=== PATIENT | female | born 2005 | race African-American/Black ===

== ENCOUNTER 2025-02-16 16:59 | Emergency (ER) | payer SELFPAY ==
[2025-02-16 18:02] LABS: Bacteria/HPF 4+ HPF (None Seen); CAUTI Indications for Culture Dysuria,urgency,freq; Glucose, Urine (Dipstick) Normal (Negative); Leukocyte 250 Leu/uL (Negative); Protein, Urine (Dipstick) 30 mg/dL (Neg-Trace); RBC/HPF 0-3 HPF (0-3); Specific Gravity, Urine 1.026 (1.002-1.036)
[2025-02-16 18:05] LABS: Urine Culture Reflex Yes Yes
[2025-02-16 18:31] LABS: #Basophils Less than 0.03 10x3/uL (0.0-0.2); #Eosinophils 0.13 10x3/uL (0.0-0.7); #Monocytes 0.59 10x3/uL (0.11-0.59); #Neutrophils 6.00 10x3/uL (1.40-6.50); %Basophils 0.2 % (0.0-1.0); %Eosinophils 1.5 % (0.0-10.0); %Lymphocytes 23.8 % (28.0-48.0); %Monocytes 6.6 % (0.0-4.0); %Neutrophils 67.2 % (31.0-61.0); Hematocrit 34.9 % (36.0-47.0); Hemoglobin 11.5 g/dL (12.0-16.0); Mean Corpuscular Hemoglobin 28.6 pg (25.0-35.0); Mean Corpuscular Volume 86.8 fL (78.0-98.0); Platelet Count 258 10x3/uL (130-400); Red Blood Cell (RBC) Count 4.02 mill/uL (4.00-5.20); White Blood Cell (WBC) Count 8.92 10x3/uL (4.8-10.8)
[2025-02-16] MEDS ORDERED: Metoclopramide HCl 10 MG (2 mL) VIAL ONE (18:41)
[2025-02-16] MEDS ORDERED: Acetaminophen 325 MG TAB ONE (18:41)
[2025-02-16 18:50] LABS: BHCG - Serum POSITIVE (NEGATIVE); Pregs Control Background? CLEAR/WHITE (CLR/WHITE); Pregs Control Bar Appear? YES (CONTROL BAR)
[2025-02-16 19:01] LABS: ALT (SGPT) 269 U/L (Less than 34); AST (SGOT) 141 U/L (11-34); Albumin 3.8 g/dL (3.1-4.5); Alkaline Phosphatase 59 U/L (40-100); Anion Gap 12 mmol/L (10-20); BUN (Urea Nitrogen) 6 mg/dL (8.4-21.0); Bilirubin, Total 0.3 mg/dL (0.3-1.2); Calc. Creatinine Clearance 0 mL/min (70-130); Calcium 9.4 mg/dL (7.8-10.44); Carbon Dioxide 22 mmol/L (22-29); Chloride 105 mmol/L (98-107); Globulin 4.0 g/dL (2.4-3.5); Glucose 95 mg/dL (70-105); Lipase 26 U/L (8-78); Potassium 3.6 mmol/L (3.5-5.1); Sodium 135 mmol/L (136-145)
== END 2025-02-16 20:20 | disposition home or self-care (01) ==
LOC: ERS 16:59
DX: O26.891 Other specified pregnancy related conditions, first trimester (principal); R10.2 Pelvic and perineal pain; O99.892 Other specified diseases and conditions complicating childbirth; R10.30 Lower abdominal pain, unspecified; R94.5 Abnormal results of liver function studies; O23.42 Unspecified infection of urinary tract in pregnancy, second trimester; N39.0 Urinary tract infection, site not specified; Z3A.15 15 weeks gestation of pregnancy
CPT/HCPCS: 76815; 80053; 81001; 83690; 84703; 85025; 87086; 96365; 96366; J2765